=== PATIENT | female | born 1960 | race American Indian/Alaskan Native ===

== ENCOUNTER 2018-08-12 12:09 | Outpatient (CLI) | payer OTHER ==
--- NOTE | 2018-08-12 13:49 | Mammography Report ---
LEFT DIGITAL DIAGNOSTIC MAMMOGRAM: 08/12/18 12:09:00 CLINICAL: For clip placement immediately status post ultrasound biopsy. COMPARISON:[facility] 07/30/18 mammogram FINDINGS: A biopsy clip is now identified within the upper inner mass. IMPRESSION: Concordant clip placement status post ultrasound biopsy. BI-RADS CATEGORY: 4--Suspicious Pathology pending.
--- NOTE | 2018-08-12 14:12 | Ultrasound Report ---
ULTRASOUND GUIDED NEEDLE CORE BIOPSY LEFT BREAST WITH CLIP PLACEMENT: 08/12/18 CLINICAL: A solid mass at 11 o'clock. COMPARISON :[facility] 07/30/18 ultrasound FINDINGS: The procedure was explained to the patient and informed consent was obtained. Ultrasound demonstrated an oval solid shadowing mass at 11 o'clock 12 cm from the nipple measuring 1.2 x 0.7 x 1.3 cm. It correlates with the mass described to be 6 cm from the nipple on the previous ultrasound.. I marked the breast with a felt tip marker and a time out was called. The skin was prepped with Betadine and anesthetized with 1% lidocaine. Needle core biopsy was performed through a tiny dermatotomy using ultrasound guidance, 2% lidocaine with epinephrine for deep anesthesia and a 14-gauge Achieve biopsy device. 4 cores were obtained and placed in formalin. A clip was deployed within the mass. The patient tolerated the procedure well and there were no apparent complications. Hemostasis was achieved with minimal pressure and a sterile dressing was applied. A two view mammogram demonstrated concordant clip deployment. She left the department in good condition and was given instructions for wound care and followup. IMPRESSION: Uncomplicated ultrasound guided needle core biopsy with clip placement left breast.
== END 2018-08-12 12:10 | disposition home or self-care (01) ==
LOC: SPVWC 12:09
PROVIDERS: ATTEND Family Medicine
DX: D24.2 Benign neoplasm of left breast (principal)
CPT/HCPCS: 88305

== ENCOUNTER 2020-09-06 17:01 | Emergency (ER) | payer OTHER ==
--- NOTE | 2020-09-06 18:02 | Event Note ---
ED Screening Note ED Screening Note: pt presents for high blood pressure and high blood sugar pt has SOB and CP she denies any fever, cough, v/d, abd pain was seen at [facility] for possible PNA about two weeks ago This initial assessment/diagnostic orders/clinical plan/treatment(s) is/are subject to change based on patients health status, clinical progression and re- assessment by fellow clinical providers in the ED. Further treatment and workup at subsequent clinical providers discretion. Patient/guardian urged not to elope from the ED as their condition may be serious if not clinically assessed and managed. Initial orders include: labs, EKG, CXR
[2020-09-06 18:30] LABS: Basophils # (Auto) 0.1 K/mm3 (0.0-0.1); Basophils % (Auto) 1.1 % (0.0-1.8); Eosinophils # (Auto) 0.1 K/mm3 (0.0-0.4); Eosinophils % (Auto) 0.7 % (0.0-4.3); Hematocrit 39.5 % (30.3-42.9); Hemoglobin 13.3 gm/dl (10.1-14.3); Lymphocytes # (Auto) 1.1 K/mm3 (1.2-5.4); Mean Corpuscular HGB Conc 34 % (30-34); Mean Corpuscular Volume 82 fl (79-97); Monocytes # (Auto) 0.8 K/mm3 (0.0-0.8); Monocytes % (Auto) 8.7 % (0.0-7.3); Platelet Count 234 K/mm3 (140-440); Red Blood Count 4.83 M/mm3 (3.65-5.03); Red Cell Distribution Width 13.8 % (13.2-15.2)
[2020-09-06 18:50] LABS: Alanine Aminotransferase 73 units/L (7-56); Albumin 4.3 g/dL (3.9-5); BUN/Creatinine Ratio 17; Blood Urea Nitrogen 19 mg/dL (7-17); Calcium 9.6 mg/dL (8.4-10.2); Hemolysis Index 15
--- NOTE | 2020-09-06 20:10 | XRay Report ---
CHEST 2 VIEWS INDICATION / CLINICAL INFORMATION: SOB, CP. COMPARISON: None available. FINDINGS: SUPPORT DEVICES: None. HEART / MEDIASTINUM: Mild cardiomegaly with a prominent appearing upper mediastinum LUNGS / PLEURA: No significant pulmonary or pleural abnormality. No pneumothorax. ADDITIONAL FINDINGS: No significant additional findings. IMPRESSION: Mild cardiomegaly with a mildly widened mediastinum. CT of the chest with contrast may be helpful for further evaluation if clinically indicated Signer Name: Gen Doe MD FACR Signed: 09/06/2020 8:06 PM Workstation Name: [id number]
== END 2020-09-06 23:00 | disposition left against medical advice (07) ==
LOC: ED 17:01
DX: R06.02 Shortness of breath (principal); Z53.21 Procedure and treatment not carried out due to patient leaving prior to being seen by health care provider
CPT/HCPCS: 36415; 71046; 80053; 82550; 83735; 83880; 84484; 85025